=== PATIENT | male | born 1995 | race Caucasian/White ===

== ENCOUNTER → 2023-11-15 | Outpatient (CLI) | payer OTHER, SELFPAY ==
[2023-11-15 15:14] LABS: International Normalized Ratio 1.7
[2023-11-15 15:15] LABS: Partial Thromboplast Time 38.4 Seconds (24.1-36.2)
[2023-11-15 15:30] LABS: Anion Gap 5 (5-15); BUN 6 mg/dL (7-18); BUN/Creat Ratio 7.3 RATIO (10-20); Calcium,Total 7.9 mg/dL (8.5-10.1); Chloride 110 mmol/L (98-107); Creatinine, Serum 0.83 mg/dL (0.70-1.30); EST Glomerular Filtration Rate 116 mL/min (>60); Est Glom Filt Rate - Afr Amer 141 mL/min (>60); Glucose 101 mg/dL (74-106); Potassium 3.4 mmol/L (3.5-5.1); Sodium Level 138 mmol/L (136-145)
[2023-11-17 04:07] LABS: AFP, Tumor Marker 13.1 ng/mL (0.0-5.7)
== END | disposition home or self-care (01) ==
LOC: MTLAB 12:38
PROVIDERS: Referring Provider Internal Medicine Gastroenterology; Visit Provider Internal Medicine Gastroenterology
DX: K74.60 Unspecified cirrhosis of liver (principal)
CPT/HCPCS: 36415; 80048; 82105; 85610; 85730

== ENCOUNTER → 2023-12-26 | Outpatient (CLI) | payer OTHER, SELFPAY ==
[2023-12-26 15:42] LABS: Absolute Lymphocyte Count 2.11 X10^3/uL (0.83-4.51); Basophil# 0.08 X10^3/uL; Eosinophil# 0.09 X10^3/uL; Eosinophils% 1.1 % (0-5); Hematocrit 37.5 % (40-54); Hemoglobin 12.9 g/dL (13.0-16.5); Lymphocyte # 2.11 X10^3/ul (0.83-4.51); Lymphocyte % 25.4 % (19-41); Mean Corp Hgb Conc 34.4 g/dL (32-36); Mean Corpuscular Hgb 34.1 pg (27.0-32.0); Mean Corpuscular Volume 99.2 fL (80-94); Mean Platelet Vol. 11.5 fl (6.2-12.0); Monocyte# 0.99 X10^3/uL; Monocyte% 11.9 % (0-10); NRBC Flagged by Analyzer 0 % (0-5); Neutrophil # 5.03 X10^3/uL (2.7-7.7); Neutrophil % 60.4 % (47-70); Platelet Count 144 K/mm3 (150-450); RBC Distribution Width SD 54.6 fl (35.1-43.9); Red Blood Count 3.78 M/mm3 (4.6-6.2); White Blood Count 8.3 K/mm3 (4.4-11.0)
[2023-12-26 15:56] LABS: Prothrombin Time (Protime)PT. 22.3 SECONDS (11.7-14.9)
[2023-12-26 15:57] LABS: Partial Thromboplast Time 44.4 Seconds (24.1-36.2)
[2023-12-26 16:03] LABS: AST(SGOT) 144 U/L (15-37); Alanine Aminotransfer ALT/SGPT 93 U/L (16-61); Albumin, Serum 2.1 g/dL (3.2-5.0); Alkaline Phosphatase 268 U/L (45-117); Anion Gap 6 (5-15); BUN 6 mg/dL (7-18); BUN/Creat Ratio 9.3 RATIO (10-20); Chloride 103 mmol/L (98-107); Cholesterol 80 mg/dL (200); Creatinine, Serum 0.65 mg/dL (0.70-1.30); EST Glomerular Filtration Rate 154 mL/min (>60); Est Glom Filt Rate - Afr Amer 186 mL/min (>60); Globulin 4.9 g/dL (2.2-4.2); Glucose 79 mg/dL (74-106); High Density Lipoprotein 21 mg/dL; Phosphorus 2.9 mg/dL (2.5-4.9); Potassium 3.8 mmol/L (3.5-5.1); Sodium Level 132 mmol/L (136-145); Triglycerides 62 mg/dL; Very Low Density Lipoprotein 12 mg/dL (5-40)
== END | disposition home or self-care (01) ==
LOC: MTLAB 11:15
PROVIDERS: Referring Provider Internal Medicine; Visit Provider Internal Medicine
DX: Z00.00 Encounter for general adult medical examination without abnormal findings (principal); E83.01 Wilson's disease
CPT/HCPCS: 36415; 80048; 80061; 80076; 84100; 85025; 85610; 85730

== ENCOUNTER 2025-04-04 16:01 | Outpatient (CLI) | payer BC, SELFPAY ==
--- NOTE | 2025-04-04 16:06 | RAD_ITS ---
PROCEDURE: ANKLE MIN 3 VIEWS 04/04/2025 REASON FOR EXAM: ANKLE PAIN TECHNIQUE: ANKLE MIN 3 VIEWS Laterality: Right COMPARISON: None FINDINGS: Bones: Unremarkable bones. No evidence of any acute fracture deformity. Joints: Normal alignment. Mortise appears intact. No effusion. Soft tissues: Mild soft tissue swelling overlying ankle joint. RAD/Ankle min 3 Views IMPRESSION: NO VISIBLE FRACTURE. IF THERE IS ONGOING CLINICAL SUSPICION FOR FRACTURE CONSID ER FOLLOWUP IMAGING IN 7-10 DAYS. Reading Location: [id number]
== END 2025-04-04 23:59 | disposition home or self-care (01) ==
LOC: MTRAD 16:02
PROVIDERS: Referring Provider Physician Assistant Surgical; Visit Provider Physician Assistant Surgical
DX: M25.571 Pain in right ankle and joints of right foot (principal)
CPT/HCPCS: 73610